=== PATIENT | male | born 1950 ===

== ENCOUNTER 2024-10-21 06:06 | Day surgery (SDC) | payer OTHER ==
[~2024-10-21 06:06] MED LIST: ATACAND16 MG PO; ROSUVASTATIN CAL5 MG PO
[2024-10-21] MEDS ORDERED: CEFAZOLIN SODIUM 1,000 MG VIAL IV ONE (11:00)
[2024-10-21] MEDS ORDERED: HEPARIN SODIUM,PORCINE 500 UNITS/5 ML VIAL IV ONE (11:00)
[2024-10-21] MEDS ORDERED: TRAM1TAB98 PO (12:16)
== END 2024-10-21 14:00 | disposition home or self-care (01) ==
LOC: CIR.AMB 06:06
PROVIDERS: ATTEND Surgery
DX: C20 Malignant neoplasm of rectum (principal)
CPT/HCPCS: 36561; C1751